=== PATIENT | male | born 1970 | race Caucasian/White ===

== ENCOUNTER → 2017-03-07 | Outpatient (CLI) | payer OTHER ==
[~2017-03-07] MED LIST: AMOXICILLIN875 MG PO; BROMFED DM COU118 ML PO; FLONASE 50 MCG16 GM; LISINOPRIL10 MG PO
[2017-03-07 12:46] LABS: HEMOGLOBIN 16.8 g/dL (14.1-18.0)
[2017-03-07 12:47] LABS: LYMPH # 1.4 K/mm3 (0.7-4.5); LYMPH % 17.8 % (10-50)
[2017-03-07 14:22] LABS: BUN 12 mg/dL (7-18); GFR (ESTIMATED) 80 ML/MIN (>60)
== END ==
LOC: LAB 11:58
PROVIDERS: Emergency Medicine
DX: R53.83 Other fatigue (principal); I10 Essential (primary) hypertension